=== PATIENT | male | born 1980 | race Caucasian/White ===

== ENCOUNTER 2025-04-09 10:34 | Day surgery (SDC) | payer BC ==
[2025-04-06 14:37] VITALS: BMI 35.6
[2025-04-09 10:51] VITALS: RESP 18
[2025-04-09] MEDS ORDERED: LIDOCAINE HCL/PF 2% SDV 5ML VIAL ONE (12:04)
[2025-04-09] MEDS ORDERED: PROPOFOL 60 ML ONE (12:04)
[2025-04-09] MEDS ORDERED: PROPOFOL 20 ML ONE (12:05)
[2025-04-09 13:09] VITALS: TEMP 97.5
[2025-04-09 13:31] VITALS: BP 118/70; PULSE 80
== END 2025-04-09 13:28 | disposition home or self-care (01) ==
LOC: FASU-ENDO 10:34
PROVIDERS: ATTEND Internal Medicine Gastroenterology
PROC: 0DBN8ZX Excision of Sigmoid Colon, Via Natural or Artificial Opening Endoscopic, Diagnostic (ICD-10-PCS; principal; 2025-04-09 12:41)
DX: Z12.11 Encounter for screening for malignant neoplasm of colon (principal); D12.5 Benign neoplasm of sigmoid colon; K64.1 Second degree hemorrhoids; K64.8 Other hemorrhoids; K57.30 Diverticulosis of large intestine without perforation or abscess without bleeding
CPT/HCPCS: 88305-TC